=== PATIENT | male | born 1995 | race Caucasian/White ===

== ENCOUNTER 2021-04-15 05:45 | Day surgery (SDC) | payer OTHER, SELFPAY ==
[~2021-04-15] VITALS: Ht 177.8 cm; Wt 79.4 kg
[2021-04-15] MEDS ORDERED: ACETAMINOPHEN I.V. 1000 MG 100 ML IV ONE (06:59)
[2021-04-15] MEDS ORDERED: PROPOFOL 200MG/ 20ML VIAL (DIPRIVAN) IV ONE (07:36)
[2021-04-15] MEDS ORDERED: WATER FOR IRRIGATION,STERILE 1,000 ML IRRIG.SOLN IR ONE (07:36)
[2021-04-15] MEDS ORDERED: ePHEDrine sulfate 50 MG/ML VIAL IVP ONE (07:36)
[2021-04-15] MEDS ORDERED: METOPROLOL TARTRATE 5 MG/5 ML AMPUL IVP ONE (07:36)
[2021-04-15] MEDS ORDERED: LIDOCAINE/EPI 1% 1:100000 20 ML VIAL INJ ONE (07:36)
[2021-04-15] MEDS ORDERED: fentaNYL CITRATE 250 MCG/5 ML AMP IV ONE (07:36)
[2021-04-15] MEDS ORDERED: SUGAMMADEX SODIUM 200 MG/2 ML VIAL IV ONE (07:36)
[2021-04-15] MEDS ORDERED: LR 1,000 ML IV.SOLN IV ONE (07:36)
[2021-04-15] MEDS ORDERED: DESFLURANE 15 MIN GAS INH ONE (07:36)
[2021-04-15] MEDS ORDERED: NS 1000 ML IV.SOLN IV ONE (07:36)
[2021-04-15] MEDS ORDERED: NS IRRIG SOLN 1000 ML IR ONE (07:36)
[2021-04-15] MEDS ORDERED: MUPIROCIN 2% TOPICAL OINTMENT 22 GM TP ONE (07:36)
[2021-04-15] MEDS ORDERED: LIDOCAINE MPF 2% 5mL VIAL INJ ONE (07:36)
[2021-04-15] MEDS ORDERED: OXYMETAZOLINE HCL 0.05% NASAL SPRAY NS ONE (07:36)
[2021-04-15] MEDS ORDERED: ROCURONIUM BROMIDE 10 MG/ML (ZEMURON) IV ONE (07:36)
[2021-04-15] MEDS ORDERED: ONDANSETRON HCL 4 MG/2 ML VIAL IVP ONE (07:36)
[2021-04-15] MEDS ORDERED: DEXAMETHASONE SOD PHOSPHATE 4 MG/ML VIAL IVP ONE (07:36)
[2021-04-15] MEDS ORDERED: HYDROmorphone 1 MG/ML INJ. CARTRIDGE IVP PRN ×2 (08:30)
[2021-04-15] MEDS ORDERED: MEPERIDINE HCL/PF 25 MG/ML DISP.SYRIN IVP PRN (08:30)
[2021-04-15] MEDS ORDERED: ONDANSETRON HCL 4 MG/2 ML VIAL IVP PRN (08:30)
[2021-04-15] MEDS ORDERED: LABETALOL 100 MG/ 20ML VIAL IVP PRN (08:30)
[2021-04-15] MEDS ORDERED: LR 1,000 ML IV SCH (08:30)
[2021-04-15] MEDS ORDERED: MIDAZOLAM HCL 2 MG/2 ML VIAL (VERSED) IVP PRN (08:30)
[2021-04-15 16:23] VITALS: BP_SYST 142
== END 2021-04-15 12:16 | disposition home or self-care (01) ==
LOC: SMU 05:45 → SDS 05:45 → EDSEX 07:30 → SDS 12:16
PROVIDERS: ATTEND Otolaryngology
DX: J34.2 Deviated nasal septum (principal); D38.5 Neoplasm of uncertain behavior of other respiratory organs; J30.1 Allergic rhinitis due to pollen; J34.3 Hypertrophy of nasal turbinates; J01.40 Acute pansinusitis, unspecified; Z79.899 Other long term (current) drug therapy; Z20.822 Contact with and (suspected) exposure to COVID-19
CPT/HCPCS: 30140; 30520; 31255; 31256; 31298; 42831; 87070 ×2; 87075; 87101; 88304; 88305; 88311; C1726; C1758; J0131; J1100; J2001; J2405; J2704; J3010; J3465; J3490 ×2; J7030; J7120; U0003